=== PATIENT | female | born 1975 | race Caucasian/White ===

== ENCOUNTER → 2016-09-11 | Outpatient (CLI) | payer BC | LOC: US 14:30 | DX: E04.1 Nontoxic single thyroid nodule (principal) | CPT/HCPCS: 76536 ==

== ENCOUNTER → 2016-11-03 | Outpatient (CLI) | payer BC | LOC: RAD 16:49 | DX: M25.471 Effusion, right ankle (principal); M25.571 Pain in right ankle and joints of right foot | CPT/HCPCS: 73610 ==